=== PATIENT | female | born 1990 | race Caucasian/White ===

== ENCOUNTER 2021-08-20 09:10 | Day surgery (SDC) | payer BC ==
[2021-08-20 09:42] VITALS: BMI 31.6
[2021-08-20] MEDS ORDERED: ACETAMINOPHEN 325 MG TABLET (FP) PO PRN (10:31)
[2021-08-20] MEDS: TOBRA 0.3%/DEXAMETH 0.1% OPHTHALMIC SUSP 2.5 ML BTL OD SCH ×2 (11:40→12:05)
[2021-08-20] MEDS ORDERED: MITOMYCIN 0.02% EYE DROPS - 2ML VIAL IO SCH (12:00)
[2021-08-20] MEDS ORDERED: LIDOCAINE 1%/EPI 1:100000 (20 ML MULTI DOSE VIAL) ONE (13:13)
[2021-08-20] MEDS ORDERED: MIDAZOLAM HCL 2 MG/2 ML SINGLE DOSE VIAL ONE ×2 (13:31)
[2021-08-20] MEDS ORDERED: BSS (NA/CA/MG/K) BALANCED SALT SOLUTION OPHTH SOLN 15 ML BOTTLE ONE (14:05)
[2021-08-20 15:41] VITALS: PULSE 61; TEMP 97.8
[2021-08-20 15:44] VITALS: BP 112/64
== END 2021-08-20 16:25 | disposition home or self-care (01) ==
LOC: FASU 09:10
PROVIDERS: ATTEND Ophthalmology
PROC: 08U007Z Supplement of Right Eye with Autologous Tissue Substitute, Open Approach (ICD-10-PCS; principal; 2021-08-20 13:39)
DX: H11.001 Unspecified pterygium of right eye (principal)
CPT/HCPCS: 84703; 88304-TC